=== PATIENT | male | born 1990 | race Caucasian/White ===

== ENCOUNTER 2019-01-23 00:28 | Emergency (ER) | payer MEDICARE, MEDICAID ==
[~2019-01-23] VITALS: Ht 182.9 cm; Wt 108.9 kg
--- NOTE | 2019-01-23 00:35 | NUR ---
OLIVIA LEMONS STATING "I WANT SOME MEDS" REPORTS AUDITORY AND VISUAL HALLUCINATIONS, HAS SI OF TAKING DRUGS OR JUMPING OFF THE BRIDGE. TO ER BED 6, HOOKED TO MONITOR, AWAITING MD CHILDERS.
--- NOTE | 2019-01-23 00:36 | NUR ---
DR OSBORN AT BEDSIDE
[2019-01-23] MEDS ORDERED: QUETIAPINE FUMARATE 25 MG TABLET ONE (00:41)
--- NOTE | 2019-01-23 00:50 | NUR ---
REFUSED BLOOD DRAW. PT NOT ABLE TO PROVIDE URINE SAMPLE. MADE AWARE.
--- NOTE | 2019-01-23 00:57 | NUR ---
PT REFUSED SEROQUEL 100MG PO. MADE AWARE
[2019-01-23] MEDS ORDERED: QUETIAPINE FUMARATE 100 MG TABLET PO SCH (01:00)
--- NOTE | 2019-01-23 01:02 | NUR ---
DR OSBORN AT BEDSIDE
[2019-01-23] MEDS ORDERED: DIAZEPAM 5 MG TABLET PO ONE (01:30)
[2019-01-23] MEDS ORDERED: OLANZAPINE 5 MG TABLET PO ONE (01:30)
[2019-01-23] MEDS ORDERED: OLANZAPINE 5 MG TABLET ONE (01:39)
[2019-01-23] MEDS ORDERED: DIAZEPAM 5 MG TABLET ONE (01:39)
--- NOTE | 2019-01-23 01:45 | NUR ---
pt still refusing blood draw.
--- NOTE | 2019-01-23 01:54 | NUR ---
Patient given written and verbal discharge instructions. Patient verbalizes understanding of instructions. Patient is ambulatory with steady gait. Pt verbalized that he does not have a place to go for the night, refuses offer of residential placement. Patient given list of available shelters in surrounding area but refused. Pt refused to sign homeless patient waiver form. Refused tap card. Nursing Apprentice Embalmer Gladis lopez. Pt assisted to waiting room.
--- NOTE | 2019-01-23 02:01 | NUR ---
CALLED NURSING SUPERVISOR TAPING FOR TAP CARD
--- NOTE | 2019-01-23 02:02 | NUR ---
PT REFUSED TAP CARD. NURSING QA ENGINEER AWARE.
[2019-01-23 02:08] VITALS: BP 150/98
== END 2019-01-23 02:12 | disposition home or self-care (01) ==
LOC: ER 00:34
DX: F25.9 Schizoaffective disorder, unspecified (principal); F13.239 Sedative, hypnotic or anxiolytic dependence with withdrawal, unspecified; Z59.0 Homelessness; Z76.5 Malingerer [conscious simulation]
CPT/HCPCS: 99284; A4606